=== PATIENT | female | born 1955 | race Caucasian/White ===

== ENCOUNTER 2017-11-09 09:38 | Inpatient (IN) | payer OTHER, MEDICAID, SELFPAY | END 2017-11-16 15:05 | DRG 441 | PROVIDERS: Admitting Provider Internal Medicine; Emergency Provider Emergency Medicine; Visit Provider Internal Medicine | DX: K72.00 Acute and subacute hepatic failure without coma (principal); K76.7 Hepatorenal syndrome; E43 Unspecified severe protein-calorie malnutrition; N17.9 Acute kidney failure, unspecified; D68.4 Acquired coagulation factor deficiency; D62 Acute posthemorrhagic anemia; Z68.41 Body mass index [BMI] 40.0-44.9, adult; K70.10 Alcoholic hepatitis without ascites; K92.1 Melena; N39.0 Urinary tract infection, site not specified; B96.1 Klebsiella pneumoniae [K. pneumoniae] as the cause of diseases classified elsewhere; K70.31 Alcoholic cirrhosis of liver with ascites | CPT/HCPCS: 36415; 36430; 51702; 74176; 76700; 80048; 80053; 80074; 81001; 82140; 83605; 83880; 84145; 84484; 85014; 85018; 85025; 85610; 85730; 86850; 86900; 86901; 86920; 86922; 87040; 87077; 87086; 87186; 90792; 93005; 93010; 96361; 96365; 97110; 97116; 97162; 97530; 99058; 99285; P9016; C9113; J3430 ==